=== PATIENT | female | born 1995 | race Caucasian/White ===

== ENCOUNTER 2025-03-10 01:14 | Emergency (ER) | payer OTHER, SELFPAY ==
[2025-03-10 01:16] VITALS: BP 106/68
--- NOTE | 2025-03-10 01:32 | ED.GENMED ---
History of Present Illness
General
Chief Complaint: Breathing Problem
Source: patient
Exam Limitations: none
Time Seen by Provider: 03/10/25 01:29
Nursing documentation reviewed up to this point in time: agreed with
History of Present Illness
History of Present Illness:
This is a 29-year-old female with a past medical history of asthma who presents emergency department today with concerns of acute exacerbation of her asthma over the past few weeks. Patient reports that she has had an asthma diagnosis since she was
a child reports that since moving to [place] from [place] in 2018, she has noticed that her asthma symptoms have gotten worse. In particular, she noticed that her asthma gets worse in the fall in the spring in response to seasonal changes and
pollen. Patient reports that this past week, she has had to use her albuterol nebulizer at home multiple times per day. Patient currently states that she has not used a controller inhaler because she states that she has had ill effects to advair
inhaler and other long acting steroid inhalers in the past stating that she will get panic attacks. Currently, she has felt intermittent wheezing and tightness in her chest and back. She follows with a manager media from [place] and was told that
there is not much else she can do in terms of her management since she cannot tolerate long acting inhalers. She is looking for a second opinion. She was referred to an clay pigeon loader and saw them for initial evaluation a month ago but did not get the
follow-up blood work yet. She denies any tongue or lip swelling, difficulty swallowing.
Past History
Past History
ED Past Medical History: Asthma
ED Past Surgical History: None
Social History
Tobacco: Non-smoker
Alcohol: None
Drug: None
Personal: Single
Living: with family
Employment: Employed
Family History
Family History: Negative Diabetes
Review of Systems
Review of Systems
All Other Systems: ROS reviewed and negative except as documented in HPI and ROS
Phy Exam
Physical Exam
Physical Exam:
General: Patient is well appearing and in no acute distress; non-toxic
Skin: Warm and dry, no rashes or lesions
Head: Normocephalic, atraumatic
Eyes: Sclera non-icteric. EOMs intact.
Mouth: No pharyngeal erythema noted to posterior pharynx
Cardiac: Regular rate and rhythm, no murmurs
Peripheral Vascular: No lower extremity swelling or edema
Pulm: Normal respiratory effort, scattered wheezes heard in lower lung bases
Neuro: CN II-XII intact, no focal neurologic deficits.
Psychiatric: Appropriate mood and affect.
Course
Orders/Labs/Results
Orders:
Orders
03/10/25 01:50
Dexamethasone Sod Phosphate [Decadron] 10 mg IV NOW STA
Ipratropium/Albuterol Sulfate [Duoneb] 3 ml INH R NOW STA
CR Chest - 2 Views Urgent
Comment:
Reason For Exam: wheezing, shortness of breath
03/10/25 01:52
0.9% Sodium Chloride 500 ml [Nss] 500 ml IV BOLUS
03/10/25 02:08
COVID-19 Antigen Urgent
Source: Nasal Swab
Complete Blood Count/With Diff Urgent
Comprehensive Metabolic Panel Urgent
Influenza A+B Rapid Molecular Urgent
MARINO Source: Nasal Swab
Specimen Description:
03/10/25 03:21
Ipratropium/Albuterol Sulfate [Duoneb] 3 ml .ROUTE .STK-MED ONE
03/10/25 03:23
Ipratropium/Albuterol Sulfate [Duoneb] 3 ml INH R NOW ONE
Abnormal Lab Results
03/10/25
02:08
RBC 4.05 L 10^6/uL
(4.20-5.40)
MCH 32.3 H pg
(27.0-31.0)
Chloride 108 H mmol/L
(98-107)
BUN 20 H mg/dl
(7-17)
Glucose 100 H mg/dl
(70-99)
03/10/25 02:08
03/10/25 02:08
Vital Signs
Initial and Last Documented VS:
Initial Vital Signs
Temp Pulse Resp BP Pulse Ox
97.8 F 86 20 106/68 98
03/10/25 01:16 03/10/25 01:16 03/10/25 01:16 03/10/25 01:16 03/10/25 01:16
Last Documented Vital Signs
Temp Pulse Resp BP Pulse Ox
97.8 F 93 14 98/63 98
03/10/25 01:16 03/10/25 03:15 03/10/25 03:15 03/10/25 03:15 03/10/25 03:15
MDM/Problems Addressed
Differential Diagnosis Includes:
Allergic rhinitis, asthma exacerbation, viral syndrome, pneumonia
MDM/Problems Addressed:
29-year-old female presents emergency department today with concerns of asthma exacerbation. Patient reports that over the past few months her asthma has gotten worse and she is needed to use her nebulizer machine more frequently. She reports that
this past day, she had to use her rescue medication some if she is ever had. Physical exam Emergency Department she is well-appearing she is in no acute respiratory distress, she has normal respiratory effort, I do hear occasional scattered
wheezing but no audible wheezing without stethoscope. Her chest x-ray shows no acute disease, no evidence of pneumonia. Her viral testing is negative. Her blood work is unremarkable. Patient was given a dose of Decadron here in the emergency
department and a DuoNeb treatment. She reports great relief in her symptoms with the DuoNeb treatment and she feels well enough to go home. Patient has had adverse reactions to steroids in the past but she has not tried them in multiple years.
Recommended that patient try a short burst of prednisone and if she starts to have ill side effects she can stop and follow-up with her manager media. Patient is looking for second opinion so I did give her a referral for another manager media and
stressed importance of following up with her clay pigeon loader. Patient stable for discharge.
Chronic conditions affecting care:
Asthma
*Pulse Oximetry
Patient hypoxic: no
*Critical Care Note
Total Time (30-74mins, 75-104mins- exclusive of procedures): Not Applicable
ED Attending Note
-
Portions of this chart may have been created with voice recognition software.� Occasional wrong word or��sound alike� substitutions may have occurred due to the inherent limitations of voice recognition software.
Discharge Plan
Departure
Patient Disposition: Home (Routine Discharge)
Date of Disposition: 03/10/25
Time of Disposition: 03:40
Patient with high blood pressure during this ER visit?: No
Condition: Good
Discharge Problem:
Asthma exacerbation, Seasonal allergies
Instructions: Asthma, Adult (DC), BLOOD PRESSURE
Prescriptions:
New
prednisone 20 mg tablet
40 mg PO DAILY 5 Days Qty: 10 0RF
No Action
ibuprofen 600 MG tablet
600 mg PO Q6 PRN (Reason: pain) Qty: 20 0RF
albuterol sulfate 2.5 mg /3 mL (0.083 %) Solution For Nebulization
2.5 mg INHALATION Q4H PRN (Reason: wheezing)
Referrals:
Prabhakar Chang MD [Active] - Call in 1-3 days for appt
Alma Avelar MD [Consulting Staff] - Call in 1-3 days for appt
Jared Degroot MD [Family Provider] -
Stand Alone Forms: Return to Work
Activity Restrictions/Additional Instructions:
Prednisone has been sent to your pharmacy. Please take 40 mg once daily for 5 days. Please start taking this on (03/11/25).
Please continue taking your allergy medication. Please have your blood work completed for the clay pigeon loader.
You can all the attached number for Dr. Chang's office (pulmonology) for a second opinion.
PLEASE RETURN TO THE EMERGENCY DEPARTMENT FOR AN ACUTE WORSENING OF YOUR SYMPTOMS, INCREASING CHEST PAIN, TROUBLE SWALLOWING, RASH, TONGUE OR LIP SWELLING, OR ANY OTHER SIGNS OR SYMPTOMS WORRISOME TO YOU.
Interventions
Interventions:
*Risk Screen - Suicide Last Done: 03/10/25 01:16
*General Assessment Last Done: 03/10/25 01:40
*Neglect/Abuse Screening Last Done: 03/10/25 01:16
*ED- Fall Risk Assessment Last Done: 03/10/25 01:40
*ED COVID-19 Vaccine History Last Done: 03/10/25 01:40
*Nursing Disposition Last Done: 03/10/25 03:45
ED- Cardiac Assessment Last Done: 03/10/25 01:40
ED- Pulmonary Assessment Last Done: 03/10/25 01:40
Discharge Date and Time
Discharge Date/Time: 03/10/25 03:45
Print Language: ZAMBIAN
[2025-03-10 01:39] VITALS: BP 100/65
[2025-03-10 01:40] VITALS: BMI 24.7
[2025-03-10] MEDS: DECADRON 10 MG IV (02:01)
[2025-03-10] MEDS: NSS 500 IV (02:05)
[2025-03-10 02:20] LABS: % Basophils 0.9 % (0-2); % Eosinophils 5.7 % (0-6); % Immature Granulocytes 0.1 % (0-0.5); % Lymphocytes 30.2 % (20.5-51.1); % Monocytes 8.3 % (1.7-9.3); % Neutrophils 54.8 % (42.2-75.2); Absolute Basophils 0.1 10^3/uL (0-0.2); Absolute Eosinophils 0.4 10^3/uL (0-0.7); Absolute Lymphocytes 2.1 10^3/uL (1.2-3.4); Absolute Monocytes 0.6 10^3/uL (0.1-0.6); Absolute Neutrophils 3.7 10^3/uL (1.4-6.5); Hematocrit 37.8 % (37.0-47.0); Hemoglobin 13.1 g/dL (12.0-16.0); Mean Corp Hgb Conc. 34.7 g/dL (33.0-37.0); Mean Corpuscular Hgb 32.3 pg (27.0-31.0); Mean Corpuscular Volume 93.3 fL (81.0-99.0); Nucleated Red Blood Cells % 0 %; Platelet Count 270 10^3/uL (130-400); Red Blood Cell Count 4.05 10^6/uL (4.20-5.40); Red Cell Dist. Width 11.9 % (11.5-14.5); White Blood Cell Count 6.8 10^3/uL (4.8-10.8)
[2025-03-10] MEDS: DUONEB 3 ML INH ×2 (02:22→03:23)
[2025-03-10 02:32] LABS: ALT (SGPT) 17 U/L (0-35); AST (SGOT) 22 U/L (14-36); Albumin 4.6 g/dl (3.5-5.0); Alkaline Phosphatase 50 U/L (38-126); Blood Urea Nitrogen 20 mg/dl (7-17); Calcium 9.9 mg/dl (8.4-10.2); Carbon Dioxide 24 mmol/L (22-30); Chloride 108 mmol/L (98-107); Estimated Creatinine Clearance 98 ml/min; Glucose 100 mg/dl (70-99); Potassium 3.9 mmol/L (3.5-5.1); Sodium 140 mmol/L (135-145); Total Bilirubin 0.3 mg/dl (0.2-1.3); Total Protein 7.4 g/dl (6.3-8.2); eGFR > 60.00
[2025-03-10 02:33] LABS: COVID-19 Antigen Negative (Negative)
[2025-03-10 03:15] VITALS: BP 98/63
== END 2025-03-10 03:45 | disposition home or self-care (01) ==
LOC: EMR 01:14
PROVIDERS: Physician Assistant; EMERGENCY PHYSICIAN Student in an Organized Health Care Education/Training Program; FAMILY PHYSICIAN Family Medicine
DX: J45.901 Unspecified asthma with (acute) exacerbation (principal); J30.2 Other seasonal allergic rhinitis; Z11.52 Encounter for screening for COVID-19
CPT/HCPCS: 94640; 96374; 96361; 99284; 71046; 80053; 85025; 87502; 87811